=== PATIENT | male | born 1940 | race Caucasian/White ===

== ENCOUNTER 2024-05-11 14:03 | Emergency (ER) | payer MEDICARE, SELFPAY ==
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
[2024-05-11 14:24] VITALS: BP 152/71; PULSE 59; RESP 16; TEMP 36.6; O2SAT 97
--- NOTE | 2024-05-11 14:41 | PC.NURSE ---
ELA applied by EMS THREAD SPINNER.
--- NOTE | 2024-05-11 14:43 | ECG_ITS ---
Test Date: 2024-05-11 14:45:50 Measurements Intervals [place] Rate: 63 P: 98 HI: 268 QRS: -68 QRSD: 142 T: 32 QT: 440 QTc: 451 Interpretive Statements SINUS RHYTHM WITH PACS RIGHT BUNDLE BRANCH BLOCK [120+ ms QRS DURATION, UPRIGHT V1, 40+ ms S IN I/aVL/V4/V5/V6] LEFT ANTERIOR FASCICULAR BLOCK [QRS AXIS <= -45, QR IN I, RS IN II] MODERATE VOLTAGE CRITERIA FOR LVH, CONSIDER NORMAL VARIANT [MEETS CRITERIA IN ONE OF: R(aVL), S(V1), R(V5), R(V5/V6)+S(V1)] No previous ECG available for comparison Electronically Signed On 05-12-2024 14:23:27 CDT by Emerita Garnett M.D.
--- NOTE | 2024-05-11 17:09 | PC.NURSE ---
Pt to room with cervical collar intact, abrasion to left knee. Pt c/o uncomfortable due to cervical collar. Instructed RN can not remove cervical collar until cleared by MD.
[2024-05-11 17:10] VITALS: BP 180/74; PULSE 70; RESP 16; O2SAT 97
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
[2024-05-11 18:00] VITALS: BP 153/86; PULSE 72; RESP 18; O2SAT 96
[2024-05-11 18:23] LABS: Basophils Absolute Auto 0.1 K/mm3 (0.0-0.1); Basophils Percent Auto 0.4 % (0.2-1.2); Eosinophils Absolute Auto 0.1 K/mm3 (0-0.3); Eosinophils Percent Auto 0.5 % (0-4.4); Hematocrit 35.1 % (42.0-52.0); Hemoglobin 11.2 g/dL (14.0-18.0); Immature Granulocyte Absolute 0.08 K/mm3 (0.00-0.031); Immature Granulocyte Percent A 0.6 % (0-0.5); Lymphocytes Percent Auto 5.6 % (18.3-44.2); Mean Corpuscular HGB Conc 31.9 g/dl (32-36); Mean Corpuscular Hemoglobin 29.7 pg (26-34); Mean Corpuscular Volume 93.1 fl (80-100); Mean Platelet Volume 10.7 fl (7.4-10.4); Monocytes Absolute Auto 0.8 K/mm3 (0.1-0.6); Monocytes Percent Auto 6.6 % (2.6-8.5); Neutrophils Absolute Auto 10.7 K/mm3 (1.3-6.7); Neutrophils Percent Auto 86.3 % (45.5-73.1); Platelet Count Result 281 k/mm3 (150-375); Red Blood Count 3.77 M/mm3 (4.6-6.20); Red Cell Distribution Width 13.9 % (11.5-14.5); White Blood Count 12.4 K/mm3 (4.5-10.0)
[2024-05-11 18:41] LABS: Alanine Aminotransferase 19 U/L (6-50); Albumin Level 4.2 g/dL (3.5-5.1); Alkaline Phosphatase 94 U/L (38-126); Anion Gap 11 mmol/L (4-12); Aspartate Amino Transferase 25 U/L (17-59); Bilirubin,Total 0.5 mg/dL (0.2-1.3); Blood Urea Nitrogen 28 mg/dL (9-20); Calcium 10.2 mg/dL (8.4-10.2); Carbon Dioxide 26 mmol/L (22-30); Chloride 104 mmol/L (98-107); Estimated CRCL calculation 43 ml/min; Estimated Glomerular Filt Rate 53; Glucose 236 mg/dL (65-110); Potassium 4.1 mmol/L (3.4-5.0); Sodium 141 mmol/L (137-145)
[2024-05-11 19:36] LABS: Troponin I < 0.012 ng/mL (0.000-0.034)
[2024-05-11 19:40] VITALS: BP 152/79; PULSE 72; RESP 20; O2SAT 96
[2024-05-11 23:28] VITALS: BP 166/93; PULSE 87; RESP 20; O2SAT 96
[2024-05-12] MEDS: HYDROcodone/acetaminophen (*CRX) 5-325 MG TABLET 1 TAB PO (00:05)
== END 2024-05-12 00:40 | disposition short-term general hospital (02) ==
PROVIDERS: Emergency Provider Physician Assistant
DX: S22.21XA Fracture of manubrium, initial encounter for closed fracture (principal); S80.02XA Contusion of left knee, initial encounter; E04.1 Nontoxic single thyroid nodule; Z95.0 Presence of cardiac pacemaker; I45.2 Bifascicular block; I71.21 Aneurysm of the ascending aorta, without rupture; V43.52XA Car driver injured in collision with other type car in traffic accident, initial encounter
CPT/HCPCS: 36415; 70450; 71260; 72125; 73564; 74177; 80053; 84484; 85025; 93005; 99285; A9270; Q9967